=== PATIENT | female | born 1950 | race Caucasian/White ===

== ENCOUNTER 2018-10-07 06:41 | Inpatient (IN) | payer OTHER ==
--- NOTE | 2018-09-24 14:41 | GHP ---
[f rep st] PREOP HISTORY AND PHYSICAL DATE OF ADMISSION: 10/07/2018 She will be an a.m. admission [facility]. PROBLEM: Left hip arthritis. HISTORY OF PRESENT ILLNESS: The patient is a 68-year-old woman admitted for a left total hip arthrop lasty. I did her right total hip arthroplasty in 2011, and she has had an excellent result. Recentl y, her left hip has become quite painful. She complains of groin pain and buttock pain. She has bee n limping. She is using Tylenol. It is painful and difficult for her to get in and out of the car. Outpatient evaluation shows severe degenerative arthritis of her left hip. PAST MEDICAL HISTORY: She has fibromyalgia and chronic pain. She is also treated for hypothyroidism and hypertension. She also is treated for depression. No history of heart disease, stents, DVT, he patitis, MRSA and staph infections, or hereditary bleeding disorders. She has had a sleep test and w as told that she had mild sleep apnea, but she does not have any treatment. CURRENT MEDICATIONS: Bupropion 75 mg per day, levothyroxine 100 mcg per day, losartan/hydrochlorothi azide 12.5 mg daily, Lyrica 150 mg p.o. 3 times daily, Paxil 40 mg per day. She also takes metoprolo l. DRUG ALLERGIES: She is severely allergic to dairy products. Metal allergy: None. Latex allergy: None. Adhesive tape and clindamycin. She states that Celebrex has caused ankle swelling, but it is not a true allergy. SOCIAL HISTORY: The patient is . She does not smoke cigarettes. Occasionally drinks alcohol . She is retired. FAMILY HISTORY: Positive for cancer, high blood pressure, and heart disease. PHYSICAL EXAMINATION: VITAL SIGNS: Height 5 feet 1 inch, weight 145 pounds, BMI 27.4. EYES: The c onjunctivae and sclerae are clear. Pupils are round and reactive. MOUTH: Good oral hygiene. No lo ose teeth. CHEST: Clear. HEART: Regular rhythm. No murmurs. EXTREMITIES: Pertinent findings ar e limited to her left hip. She has full hip extension and 110 degrees of flexion. External rotation 30 degrees. Internal rotation 0 degrees. Abduction 40 degrees. There is a reproducible clunking s ensation with abduction of her hip. IMPRESSION ON ADMISSION: 1. Left hip severe degenerative arthritis. She is prepared for a left total hip arthroplasty. 2. Seven years status post successful right total hip arthroplasty. 3. Treatment for fibromyalgia. 4. Treatment for hypothyroidism. 5. Treatment for hypertension. 6. Treatment for depression. PLAN: She will undergo a right total hip arthroplasty. The surgery has been described to her, inclu ding the risks, complications, expectations, and recovery time. I have discussed with her the risk o f dislocation, leg length inequality, infection, and sciatic nerve injury. All her questions have be en answered, and she consents to surgery. She has failed nonsurgical treatment. /[id number]/MODL
[~2018-10-07 06:41] MED LIST: ACETAMINOPHEN 325 MG TAB PO ONE; DEXAMETHASONE 4 MG/ML VIAL IVP ONE; FAMOTIDINE 20 MG TAB PO ONE; LIDOCAINE 1% 2 ML INJ ID PRN; LR 1,000 ML IV ONE; ONDANSETRON 4 MG/2 ML VIAL IVP ONE; ROPIVACAINE 0.2% 80 MG, EPINEPHrine 0.2 MG in SYRINGE 0 ML IU ONE; TRANEXAMIC ACID 1,000 MG in NS 100 ML IV ONE; TRANEXAMIC ACID 3,000 MG in NS (SYRINGE) 50 ML IRR ONE; ceFAZolin 2 GM/DEXTROSE 100 ML IV ONE
[2018-10-07] MEDS ORDERED: MIDAZOLAM 2 MG/2 ML VIAL IVP ONE (07:30)
--- NOTE | 2018-10-07 07:35 | PDANEPAE ---
ANE History of Present Illness rajiv ANE Past Medical History - Cardiovascular History Hx Hypertension: Yes Hx Arrhythmias: No Hx Chest Pain: No Hx Coronary Artery / Peripheral Vascular Disease: No Hx CHF / Valvular Disease: No Hx Palpitations: No - Pulmonary History Hx COPD: No Hx Asthma/Reactive Airway Disease: No Hx Recent Upper Respiratory Infection: No Hx Oxygen in Use at Home: No Hx Sleep Apnea: Yes Sleep Apnea Screening Result - Last Documented: Positive Pulmonary History Comment: DXd w/MILD SLEEP APNEA W/NO CPAP - Neurologic History Hx Cerebrovascular Accident: No Hx Seizures: No Hx Dementia: No Neurologic History Comment: MIGRAINES WHEN YOUNGER - Endocrine History Hx Diabetes: Yes Hypothyroid: Yes Hyperthyroid: No Obesity: no Endocrine History Comment: HYPOTHYROID - Renal History Hx Renal Disorders: No - Liver History Hx Hepatic Disorders: No - Neurological & Psychiatric Hx Hx Neurological and Psychiatric Disorders: Yes Neurological / Psychiatric History Comment: DEPRESSION - Cancer History Hx Cancer: No - Congenital Disorder History Hx Congenital Disorders: No - GI History GERD: mild Hx Gastrointestinal Disorders: Yes Gastrointestinal History Comment: GERD - symptom controlled. NAUSEA AT TIMES - Other Health History Other Health History: SL. ANEMIC RECENTLY - TAKES IRON. ROSACEA. ECZEMA IN PAST - Chronic Pain History Chronic Pain: Yes (L HIP) - Surgical History Prior Surgeries: C SECTION X2. HYSTERECTOMY. METATARSAL REPAIR. R RAJIV ANE Review of Systems Review of Systems: - Exercise capacity Exercise capacity: >=4 METS METS (RN): 5 METS ANE Patient History - Allergies Allergies/Adverse Reactions: clindamycin Allergy (Severe, Verified 11/04/11 17:06) Rash adhesive tape Allergy (Intermediate, Verified 10/06/18 15:56) Itching celecoxib [From Celebrex] Allergy (Mild, Verified 10/07/18 07:14) Ankle swelling - Home Medications Home medications: home medication list seen and reviewed Home Medications: Acetaminophen [Tylenol ES 500 mg (*)] 1,000 mg PO BID 09/28/18 [Last Taken Unknown] Hydrocodone/APAP 5/325 [[place] 5/325 (*)] 1 each PO Q4-6PRN PRN 09/28/18 [Last Taken Unknown] Levothyroxine [Synthroid 100 mcg (*)] 100 mcg PO DAILY06 09/28/18 [Last Taken Unknown] Losartan/Hctz 50/12.5 [Hyzaar 50/12.5MG (*)] 1 tab PO DAILY 09/28/18 [Last Taken Unknown] Melatonin [Melatonin 5 mg] 5 mg PO HS PRN 09/28/18 [Last Taken Unknown] Omeprazole 40 mg PO DAILY 09/28/18 [Last Taken Unknown] PARoxetine HCL [Paroxetine HCl] 40 mg PO DAILY 09/28/18 [Last Taken Unknown] Pregabalin [Lyrica 75mg (*)] 75 mg PO BID 09/28/18 [Last Taken Unknown] buPROPion SR [Wellbutrin 150mg SR (*)] 150 mg PO BID 09/28/18 [Last Taken Unknown] diphenhydrAMINE [Benadryl 50 MG (*)] 50 mg PO DAILY PRN 09/28/18 [Last Taken Unknown] Cyclobenzaprine 10/05/18 [Last Taken Unknown] Doxycycline Calcium 10/05/18 [Last Taken Unknown] Estrogel 10/05/18 [Last Taken Unknown] Herbals/Supplements -Info Only 10/05/18 [Last Taken Unknown] Iron 10/05/18 [Last Taken Unknown] Metronidazole 1% 10/05/18 [Last Taken Unknown] Ondansetron 10/05/18 [Last Taken Unknown] Tramadol HCl 10/05/18 [Last Taken Unknown] Tretinoin 10/05/18 [Last Taken Unknown] - NPO status NPO Status: no food or drink >8 hours - Smoking Hx Smoking Status: Never smoked - Family Anes Hx Family Hx Anesthesia Complications: NEG ANE Labs/Vital Signs - Vital Signs Height: 149.86 cm Weight: 63.957 kg ANE Physical Exam - Airway Mallampati Score: Class 2 - Pulmonary Pulmonary: no respiratory distress - Cardiovascular Cardiovascular: regular rate and rhythym - ASA Status ASA Status: II ANE Anesthesia Plan Anesthesia Plan: spinal
[2018-10-07] MEDS ORDERED: TRANEXAMIC ACID 3,000 MG/50 ML BAG IRR ONE (07:42)
[2018-10-07] MEDS ORDERED: ceFAZolin 1 GM/5 ML SYR ONE (07:43)
[2018-10-07] MEDS ORDERED: LIDOCAINE 2% 5 ML SDV ONE (07:44)
[2018-10-07] MEDS ORDERED: PROPOFOL/EMULSION 500 MG/50 ML BOTTLE IV ONE (07:44)
[2018-10-07] MEDS ORDERED: fentaNYL 100 MCG/2 ML INJ ONE (07:44)
[2018-10-07] MEDS ORDERED: BUPIVACAINE 0.5% 30 ML SDV ONE (07:49)
--- NOTE | 2018-10-07 07:51 | PDHPUP ---
History & Physical Update H&P update statement: This history and physical update is based on an assessment of the patient which was completed after admission or registration (within 24 hours), but prior to the surgery/procedure. H&P update: H&P reviewed & patient examined
[2018-10-07] MEDS ORDERED: POVIDONE-IODINE 20 ML in SODIUM CL IRRIG SOLUTION 500 ML IRR ONE (08:00)
[2018-10-07] MEDS ORDERED: ePHEDrine SULFATE 25 MG/5 ML SYR ONE (09:06)
[2018-10-07] MEDS ORDERED: PROPOFOL 200 MG/20 ML VIAL ONE (09:32)
[2018-10-07] MEDS ORDERED: LR 500 ML IV PRN (10:02)
[2018-10-07] MEDS ORDERED: NALOXONE HCL 0.4 MG/ML INJ IVP PRN (10:02)
[2018-10-07] MEDS ORDERED: ALBUTEROL 3 ML DEYVIAL IH PRN (10:02)
[2018-10-07] MEDS ORDERED: LABETALOL HCL 5 MG/ML 20 ML MDV IVP PRN (10:02)
[2018-10-07] MEDS ORDERED: ONDANSETRON 4 MG/2 ML VIAL IVP PRN ×2 (10:02→10:21)
[2018-10-07] MEDS ORDERED: fentaNYL 100 MCG/2 ML INJ IVP PRN (10:02)
[2018-10-07] MEDS ORDERED: HYDROmorphONE/DILAUDID 1 MG/ML INJ IVP PRN (10:02)
--- NOTE | 2018-10-07 10:04 | POSTOPPROG ---
Post Op Note Date of Operation: 10/07/18 Surgeon: Aditya Perez Pharmacist [facility] Anesthesiologist: Jacob Post-op Diagnosis: Left hip severe degenerative arthritis Procedure: Left total hip arthroplasty Inf/Abcess present in the surg proc area at time of surgery?: No EBL: [id number]
--- NOTE | 2018-10-07 10:20 | POSTANESTH ---
Post Anesthetic Evaluation Cardiovascular Status: Normal, Stable Respiratory Status: Normal, Stable Level of Consciousness/Mental Status: Can Participate in Eval Pain Control: Adequate, Prn Tx Ordered Nausea/Vomiting Control: Adequate, Prn Tx Ordered Complications Possibly Related to Anesthesia: None Noted
[2018-10-07] MEDS ORDERED: diphenhydrAMINE 25 MG CAP PO PRN (10:21)
[2018-10-07] MEDS ORDERED: traMADol 50 MG TAB PO PRN (10:21)
[2018-10-07] MEDS ORDERED: MAGNESIUM HYDROXIDE 30 ML UDCUP PO PRN (10:21)
[2018-10-07] MEDS ORDERED: TEMAZEPAM 15 MG CAP PO PRN (10:21)
[2018-10-07] MEDS ORDERED: ONDANSETRON DISINTEGRATING 4 MG TAB PO PRN (10:21)
[2018-10-07] MEDS ORDERED: DIPHENOXYLATE/ATROPINE LOMOTIL 1 TAB PO PRN (10:21)
[2018-10-07] MEDS ORDERED: PROMETHAZINE HCL 25 MG/ML INJ IVP PRN (10:21)
[2018-10-07] MEDS ORDERED: NS 500 ML IV PRN (10:21)
[2018-10-07] MEDS ORDERED: BISACODYL 10 MG SUPP PR PRN (10:21)
[2018-10-07] MEDS ORDERED: PROMETHAZINE HCL 25 MG SUPPR PR PRN (10:21)
[2018-10-07] MEDS ORDERED: LACTULOSE 20 GM/30 ML UDCUP PO PRN (10:21)
[2018-10-07] MEDS ORDERED: CYCLOBENZAPRINE 10 MG TAB PO PRN (10:21)
[2018-10-07] MEDS ORDERED: LR 1,000 ML IV SCH (10:30)
--- NOTE | 2018-10-07 11:05 | GOP ---
[f rep st] OPERATIVE REPORT DATE OF OPERATION: 10/07/2018 SURGEON: Aditya Perez MD RESPITE PROVIDER: Senthil Gleason, PAC and Timbo Waters CFA ANESTHESIA: A combination of Marcaine, spinal, and IV sedation. ANESTHESIOLOGIST: Dr. Compa James PREOPERATIVE DIAGNOSIS: Left hip severe arthritis. POSTOPERATIVE DIAGNOSIS: Left hip severe arthritis. PROCEDURE PERFORMED: Left total hip arthroplasty, ceramic femoral head on highly cross-linked polyet hylene cup liner. FINDINGS: DESCRIPTION OF PROCEDURE: The patient was given 2 g of preoperative IV Ancef within 60 minutes of richard rgery. She also received 1000 mg of IV tranexamic acid. She was placed on the operating room table and given spinal anesthesia with Marcaine by Dr. James. She was then placed supine and given IV sed ation. A Alexis catheter was not used. She wore a AJ stocking and SCD on the nonoperative leg. She was rolled to the right lateral decubitus position. The position was secured with the pegboard tabl e attachment. An axillary roll was used and all pressure points were carefully padded. I was carefu l to lock her pelvis in a rigid vertical position. Her perineum was isolated with plastic adhesive d rapes. Her left hip and left lower extremity were prepped with ChloraPrep. They were draped free us ing sterile sheets, stockinette, and [place] plastic adhesive drapes. The [employer] time-out was performed to verify the correct surgical side and site and the correct patient identity. The [place] time-out was also performed. I made a 5 to 6 inch straight oblique posterolateral hip skin incision. The subcutaneous tissues wer e sharply divided and hemostasis was obtained using electrocautery. Her layer of subcutaneous fat wa s between 2 and 3 inches thick. Her fascia saurav was identified and split along the axis of its fiber s. I then curved posteriorly and proximally and split the fascia of gluteus nydia and bluntly spli t the muscle fibers in line with their orientation. The [place] self-retaining retractor was insert ed. Her sciatic nerve was located and protected throughout the procedure. The external rotators and the posterior capsule were divided as separate layers at the base of the femoral neck, tagged, and r eflected posteriorly. A smooth 8-inch Steinmann pin was inserted vertically into the ilium, superior to the acetabulum. An 8-inch drill bit was inserted vertically into the greater trochanter and para llel to the first pin. The distance between the 2 was measured for leg length reference. Her femora l head was dislocated posteriorly. Severe degenerative changes were present on the femoral head. He r femoral neck was osteotomized at the appropriate level and inclination. I was careful to preserve all the posterior capsule and most of the anterior capsule. The remnant of her damaged labrum was excised. I prepared the femur first. This allowed me to sewing machine assembler the amount of natural femoral neck anteversion. This, in turn, allowed me to later determine the correct amount of cup anteversion. She had approx imately 20 degrees of natural femoral neck anteversion. Her canal was opened first laterally with a box chisel. I used the power starter reamer, followed by hand broaching sequentially up to size 3. I used a size 3 Accolade II high offset broach as a trial stem. I was careful to lateralize adequate ly. Appropriate retractors were inserted to expose the acetabulum. The acetabulum was reamed sequentiall y up to size 52 mm. I selected a 52 mm Marta Tritanium Trident II cluster hole hemispherical shell . This was tapped securely into place in the proper degree of inclination, anteversion. I used the transverse acetabular ligament and other acetabular bony landmarks to help me determine proper cup or ientation. Fixation was tight and I did not think supplemental screws were necessary. I performed a series of trial reductions to determine length and stability. I obtained an intraopera tive cross-table AP pelvis x-ray. I concluded that the size 3 high offset stem with a -2.5 mm neck a nd a 36 mm head with a 0 degree trial liner gave me the proper combination of appropriate length and good anterior and posterior stability. The 0 degree [place] X3 highly cross-linked polyethylene liner was inserted and tapped securely into place. The [place] Accolade II stem in size 3 with high offset was inserted press-fit and was very t ight. I did 1 final trial reduction and confirmed that the -2.5 mm neck length with a 36 mm head was the proper combination. The Marta Biolox Delta ceramic head with an outside diameter of 36 mm and a neck length of -2.5 mm was tapped securely onto the clean trunnion. The acetabulum was irrigated and cleaned and the hip was reduced 1 final time. She had excellent anterior and posterior stability and appropriate length. 40 mL joint anesthetic cocktail containing ropivacaine with epinephrine were injected in the capsule, the deep musculature, and subcutaneous tissues along the skin edges. The joint was thoroughly irrig ated 1 final time with a dilute Betadine solution. Her sciatic nerve looked unharmed. 50 mL of vale examic acid were irrigated into the wound. The external rotators and the posterior capsule were repa ired in separate layers with #2 FiberWire sutures through drill holes in the greater trochanter. The fascia saurav was closed first with 2 interrupted [id number] #2 FiberWire sutures followed by a r unning #2 barbed Ethicon Stratafix PDO suture. Subcutaneous tissues were closed in layers with inter rupted 2-0 Monocryl sutures, followed by a running 0 barbed Ethicon Stratafix Monoderm suture. The s kin was closed with a running 3-0 barbed Ethicon Stratafix Monoderm subcuticular suture. The skin ed ges were reapproximated and sealed with Dermabond glue. The wound was covered with a large Mepilex w aterproof dressing. The sacral Mepilex dressing was also applied. A long-leg AJ stocking and SCD were applied to her left lower extremity. She wore a stocking and SC D on the opposite leg during the procedure. An abduction pillow was placed between her knees. She w as awakened from anesthesia and rolled to the supine position on her [facility]. She was taken to PACU in satisfactory condition. There were no recognized intraoperative complications. The estimated blood loss was about 400 mL. The sponge and needle count were correct on 2 occasions. I used a Marta Trident II Tritanium hemispherical cluster hole acetabular shell with an outside caron meter of 52 mm. The liner was a Marta X3 0-degree highly cross-linked liner with an inside diamete r 36 mm. The femoral component was a high offset Accolade II stem in a size 3 and press-fit. The fe moral head was a Marta Biolox Delta ceramic head with a -2.5 mm neck length and a 36 mm outside caron meter. Al Gleason and Timbo Waters acted as surgical assistants. Their assistance was a medical necess ity for safe completion of the procedure. /[id number]/MODL
--- NOTE | 2018-10-07 11:37 | PDMN ---
Medical Necessity Medical necessity: [facility] S560 Hip Arthroplasty, A-2 days: 68 yo s/p L RAJIV, MC IP only
[2018-10-07] MEDS: KETOROLAC 15 MG/1 ML SDV IVP SCH ×2 (13:06→17:35)
[2018-10-07] MEDS: oxyCODONE IR 5 MG TAB PO PRN ×2 (13:06→16:10)
[2018-10-07] MEDS: ACETAMINOPHEN 325 MG TAB PO SCH (15:44)
[2018-10-07] MEDS: ceFAZolin 2 GM/DEXTROSE 100 ML IV SCH (15:44)
--- NOTE | 2018-10-07 15:52 | SOAPPROG ---
SOAP Progress Note Assessment/Plan: Assessment: 68 year old female s/p left posterior RAJIV - procedure earlier today Doing well, pain tolerable at this time Had right RAJIV several years ago, she is familiar with the recovery Sciatic nerve intact History of fibromyalgia, chronic pain, hypertension, hypothyroidism, mild sleep apnea, depression Plan: Begin d/c planning - likely going to home. Will have support of her family Continue oral pain medication - oxycodone, Tylenol, Tramadol, Flexeril Continue VTE ppx - aspirin 325 mg once daily, SCDs, AJ packe Continue PT efforts - WBAT, posterior hip precautions Subjective: Patient states she is doing well, pain is tolerable. She reports having the right hip replaced in 2011 and is familiar with the recovery. She is planning on going home and will have support from family members. She denies SOB, CP, fever and chills. Objective: Vital Signs Temp Pulse Resp BP Pulse Ox 36.6 C 95 16 136/92 H 92 10/07/18 15:19 10/07/18 15:19 10/07/18 15:19 10/07/18 15:19 10/07/18 15:19 10/06/18 10/07/18 10/08/18 05:59 05:59 05:59 Intake Total 1210 Output Total 400 Balance 810 Patient resting in bed, no acute distress. Abduction pillow is in place. LLE: Wound dressings clean, dry and intact. Lower leg compartments are soft and nontender. Patient can actively DF and PF left foot and great toe against resistance. Grossly NVI distally. ICD10 Worksheet Patient Problems: Problems Problem Status Onset Unilateral primary osteoarthritis, left hip Acute
[2018-10-07] MEDS: POLYETHYLENE GLYCOL 3350 17 GM PKT PO PRN (20:47)
[2018-10-07] MEDS: FAMOTIDINE 20 MG TAB PO SCH (20:48)
[2018-10-07] MEDS: SENNOSIDES/DOCUSATE SODIUM TAB PO SCH (20:48)
[2018-10-07] MEDS: PREGABALIN 75 MG CAP PO SCH (20:48)
[2018-10-07] MEDS: buPROPion SR 150 MG TAB PO SCH (20:48)
[2018-10-07] MEDS: ASPIRIN 325 MG TAB PO SCH (21:28)
[2018-10-08] MEDS: ACETAMINOPHEN 325 MG TAB PO SCH ×3 (00:09→11:57)
[2018-10-08] MEDS: KETOROLAC 15 MG/1 ML SDV IVP SCH ×2 (00:09→05:01)
[2018-10-08] MEDS: ceFAZolin 2 GM/DEXTROSE 100 ML IV SCH (00:10)
[2018-10-08] MEDS ORDERED: LEVOTHYROXINE 100 MCG TAB PO SCH (06:00)
--- NOTE | 2018-10-08 07:32 | SOAPPROG ---
SOAP Progress Note Assessment/Plan: Assessment: Afebrile. Awake and alert. Mild pain. She has been walking in the room. Her dressing is dry. Sciatic nerve intact. Postop H&H are good. Postop films look excellent. Plan: Continue physical therapy today. Discharge later today. 10/08/18 07:31 Objective: Vital Signs Temp Pulse Resp BP Pulse Ox 36.7 C 98 16 129/89 H 95 10/08/18 04:00 10/08/18 04:00 10/08/18 04:00 10/08/18 04:00 10/08/18 04:00 Laboratory Results 10/08/18 05:27 10/07/18 10/08/18 10/09/18 05:59 05:59 05:59 Intake Total 3060 Output Total 950 Balance 2110 ICD10 Worksheet Patient Problems: Problems Problem Status Onset Unilateral primary osteoarthritis, left hip Acute
--- NOTE | 2018-10-08 07:53 | GDS ---
[f rep st] DISCHARGE SUMMARY ADMISSION DIAGNOSIS: Left hip severe degenerative arthritis. DISCHARGE DIAGNOSIS: Left hip severe degenerative arthritis. OPERATION PERFORMED: October 07, 2018, a left total hip arthroplasty, ceramic femoral head on highly cros s-linked polyethylene liner. POSTOPERATIVE COMPLICATIONS: None. CONDITION ON DISCHARGE: Improved. DESCRIPTION OF HOSPITAL COURSE: The patient was admitted to the hospital on the morning of surgery. The same day, under a combination of Marcaine spinal and IV sedation, she underwent a left total hip arthroplasty. Postoperatively, she was treated with multimodal DVT prophylaxis, including aspirin. On the first postoperative day, her hemoglobin and hematocrit were 10.2 and 32.0. She did not requi re transfused blood. She was seen by Physical Therapy and made good progress with ambulation and sta irs. By the time of discharge, She was afebrile, her wound was clean and dry, and she was independen t walking with a walker. The patient did better than expected and was able to be discharged early. DISPOSITION: The patient is discharged to her home. She will go to outpatient physical therapy. Sh e may progress to full weightbearing on the left as tolerated. Use an abduction pillow in bed for 3 weeks. Continue AJ stockings for 1 week. I will see her back in the office on October 28, 2018. If th ere are any problems, she is to call me at the office. She has prescriptions for oxycodone and trama dol for pain control. If there are any questions at home she should call me at the office. /[id number]/MODL
[2018-10-08 07:54] VITALS: BP 139/82
[2018-10-08] MEDS ORDERED: FERROUS SULFATE 325 MG TAB PO SCH (08:00)
[2018-10-08] MEDS: FAMOTIDINE 20 MG TAB PO SCH (08:08)
[2018-10-08] MEDS: ASPIRIN 325 MG TAB PO SCH (08:09)
[2018-10-08] MEDS: buPROPion SR 150 MG TAB PO SCH (08:09)
[2018-10-08] MEDS: PREGABALIN 75 MG CAP PO SCH (08:09)
[2018-10-08] MEDS: SENNOSIDES/DOCUSATE SODIUM TAB PO SCH (08:09)
[2018-10-08] MEDS: POLYETHYLENE GLYCOL 3350 17 GM PKT PO PRN (08:10)
[2018-10-08] MEDS: DOXYCYCLINE HYCLATE 20 MG PO SCH ×2 (08:50)
[2018-10-08] MEDS ORDERED: PANTOPRAZOLE SODIUM 40 MG TAB PO SCH (09:00)
[2018-10-08] MEDS ORDERED: CHOLECALCIFEROL VIT D3 1,000 UNITS TAB PO SCH (09:00)
[2018-10-08] MEDS ORDERED: PARoxetine HCL 20 MG TAB PO SCH (09:00)
[2018-10-08] MEDS ORDERED: LOSARTAN/HCTZ 50/12.5 1 TAB PO SCH (09:00)
--- NOTE | 2018-10-08 10:25 | ASMTLACE ---
LACE Length of stay for Answers: 2 days current admission Acuity / Level of Answers: Yes Care: Did the patient have an inpatient admission? Comorbidities - select Answers: Diabetes (uncontrolled or all that apply controlled) Opioid dependence / Chronic pain Other Notes: HTN; Hypothyroid # of Emergency department Answers: 0 visits in the last 6 months Social determinants Answers: Mental health diagnosis (anxiety, depression, pers onality disorders, etc.) Score: 14 Date Signed: 10/08/2018 10:24 AM Electronically Signed By:KEAGAN Arroyo
--- NOTE | 2018-10-08 13:43 | ASMTCMCOM ---
CM Note CM Note Notes: Pt had planned hip surgery. PT and MD rec outpatient, no CM d/c needs identified. Date Signed: 10/08/2018 01:42 PM Electronically Signed By:KEAGAN Arroyo
== END 2018-10-08 13:34 | disposition home or self-care (01) | DRG 470 ==
LOC: F3N 06:41
PROVIDERS: ADMIT Orthopaedic Surgery; ATTEND Orthopaedic Surgery
PROC: 0SRB04Z Replacement of Left Hip Joint with Ceramic on Polyethylene Synthetic Substitute, Open Approach (ICD-10-PCS; principal; 2018-10-07 08:15)
DX: M16.12 Unilateral primary osteoarthritis, left hip (principal); Z96.641 Presence of right artificial hip joint; M79.7 Fibromyalgia; G89.29 Other chronic pain; E03.9 Hypothyroidism, unspecified; I10 Essential (primary) hypertension; F32.9 Major depressive disorder, single episode, unspecified; G47.30 Sleep apnea, unspecified
CPT/HCPCS: 97116-GP; 97161-GP; 97165-GO; 97535-GO; J0171; J0690; J1100; J1885; J2250; J2405; J2704; J2795; J3010